=== PATIENT | male | born 1960 | race Caucasian/White ===

== ENCOUNTER → 2016-07-31 | Outpatient (CLI) | payer OTHER ==
--- NOTE | ~2016-07-31 | CR63 ---
[facility] A Service of [facility] RADIOLOGY TEXT RESULTS PATIENT: ELADIA STONE LOCATION: [facility] : 62 UNIT #: [id number] AGE: [address]: Paddy Choe MD SEX: M ORDER DR: [id number] [facility] [address] [place], [place] [address] [id number] O MR#: [id number] Acc #: [id number] NAME: ELADIA STONE : 1960 SEX: M STUDY DATE/TIME: 07/31/2016 11:08 UNIT: [facility] ROOM: STUDY DESCRIPTION: CR Chest 2 View Attending Physician: Paddy Choe M.D. Ordering Physician: Paddy Choe M.D. MEDICAL IMAGING REPORT This report is preliminary unless electronic signature is present EXAM Chest 2 views 07/31/2016 1108 hours HISTORY 56-year-old man with history of lung carcinoma, chemotherapy. Patient complains of shortness of air since May 2016. Follow up bilateral pneumonia. COMPARISON Chest x-ray 07/16/[address] chest 07/11/2016. FINDINGS Upright PA and lateral views of the chest demonstrate stable cardiomegaly and mediastinal widening. There is a left subclavian port catheter with tip at junction of SVC and right atrium without change. There is mixed interstitial and airspace change diffusely throughout both lungs appearing slightly increased at the lung bases. There is pleural fluid, left greater than right, felt also slightly increased. IMPRESSION Persistent diffuse bilateral mixed interstitial and airspace changes appearing stable in the upper lungs slightly increased in the lower lungs as compared to 07/16/2016. There are again demonstrated bilateral pleural effusions left greater than right. These also appear slightly increased. Dictated by... Shahida Traylor M.D. THIS IS AN ELECTRONICALLY VERIFIED REPORT Shahida Traylor M.D. at 07/31/2016 2:21 PM JULIETA/gracie [facility] A Service of [facility] RADIOLOGY TEXT RESULTS PATIENT: ELADIA STONE LOCATION: [facility] : 62 UNIT #: [id number] AGE: [address]: Paddy Choe MD SEX: M ORDER DR: TD: 07/31/2016 14:07 JOB #: [id number] MEDICAL IMAGING REPORT Page 1 of 1 COPY
== END | disposition home or self-care (01) ==
LOC: CRAD 10:51
DX: I31.3 Pericardial effusion (noninflammatory) (principal); J90 Pleural effusion, not elsewhere classified; J98.4 Other disorders of lung
CPT/HCPCS: 71020